=== PATIENT | female | born 1970 | race Caucasian/White ===

== ENCOUNTER 2023-11-12 21:12 | Emergency (ER) | payer BC ==
[2023-11-12 21:59] LABS: BASOPHILS ABSOLUTE AUTO 0.01 10^3/uL (0.00-0.10); BASOPHILS PERCENT AUTO 0.1 % (0.0-1.0); EOSINOPHILS ABSOLUTE AUTO 0.07 10^3/uL (0.10-0.30); HEMATOCRIT 34.9 % (37.0-47.0); HEMOGLOBIN 11.8 g/dL (12.0-16.0); IMMATURE GRAN ABSOLUTE AUTO 0.01 10^3/uL (0.00-0.50); IMMATURE GRAN PERCENT AUTO 0.1 % (0.0-5.0); LYMPHOCYTES PERCENT AUTO 14.9 % (20.0-40.0); MEAN CORPUSCULAR HEMOGLOBIN 28.8 pg (27.0-31.0); MEAN CORPUSCULAR HGB CONC 33.8 g/dL (32.0-36.0); MEAN CORPUSCULAR VOLUME 85.1 fL (82.0-92.0); MEAN PLATELET VOLUME 9.4 fL (7.4-10.4); MONOCYTES ABSOLUTE AUTO 0.64 10^3/uL (0.10-0.80); MONOCYTES PERCENT AUTO 9.6 % (2.0-8.0); NEUTROPHILS ABSOLUTE AUTO 4.97 10^3/uL (2.50-7.00); NEUTROPHILS PERCENT AUTO 74.3 % (50.0-70.0); PLATELET COUNT,PLT 166 10^3/uL (150-400)
[2023-11-12 22:16] LABS: ALBUMIN 3.3 g/dL (3.40-5.00); ANION GAP 17.2 mmol/L (5-15); BILIRUBIN TOTAL 0.7 mg/dL (0.2-1.0); C-REACTIVE PROTEIN 9.84 mg/dL (0.00-0.50); CALCIUM 8.6 mg/dL (8.7-10.3); CARBON DIOXIDE,CO2 24.8 mmol/L (21.0-32.0); CREATININE 0.66 mg/dL (0.51-1.17); EST CRCL DRUG DOSING (CG) 89.72 mL/min; PROTEIN TOTAL,TP 6.8 g/dL (6.4-8.2)
[2023-11-12] MEDS: VANCOmycin 2 GM/400 ML 2 GM in Premix Bag 1 BAG IV ONE (22:40)
[2023-11-12] MEDS: Sulfamethoxazole/Trimethoprim 800-160 MG Tab PO ONE (23:06)
[2023-11-12] MEDS: Cephalexin 250 MG Cap PO ONE (23:07)
[2023-11-12] MEDS: Acetaminophen 500 MG Tab PO ONE (23:07)
[2023-11-13] MEDS: Sodium Chloride 0.9% 250 ML IV SCH (00:51)
== END 2023-11-13 01:16 | disposition home or self-care (01) ==
LOC: KA.ED 21:12 → MERGE 21:12 → KA.ED 11-13 01:16
DX: L03.114 Cellulitis of left upper limb (principal); I10 Essential (primary) hypertension; Z79.899 Other long term (current) drug therapy
CPT/HCPCS: 36415; 80053; 83605; 84484; 85025; 86140; 87040; 93010; 96365; 96366; 99283-25; 99284; A9270-GY; J3370; J7050